=== PATIENT | female | born 1960 | race Caucasian/White ===

== ENCOUNTER 2016-12-29 11:20 | Emergency (ER) | payer BC, OTHER ==
[~2016-12-29] VITALS: Ht 170.2 cm; Wt 134.0 kg
[2016-12-29 11:30] VITALS: Ht 170.2 cm; Wt 134.0 kg
--- NOTE | 2016-12-29 12:58 | ERD ---
ER Documentation Chief Complaint Date/Time DATE: 12/29/16 TIME: 12:54 Chief Complaint right arm pain/injury HPI Patient is a 56-year-old female who presents to the ED with right arm pain after sustaining a fall yesterday. She has chronic right knee pain and uses a cane to walk around. She states that her knee gave out and she fell to the side. She states that she tried to stop falling on her knee and fell on her side. She states that the pain has gotten worse in the last day. She states that the pain is from her shoulder to her mid forearm on the right side. Denies numbness or tingling. States that she limited range of motion. She denies hitting her head, passing out or loss of consciousness. She denies chest pain or cough or shortness of breath. She also complains of left wrist pain. Patient has been taking Tylenol 3 with some relief. She takes that medication for her chronic right knee pain. No other complaints. ROS All systems reviewed and are negative except as per history of present illness. Medications Home Meds No Active Prescriptions or Reported Meds Allergies Allergies: Coded Allergies: acetaminophen (Verified Allergy, Intermediate, rash, 12/29/16) hydrocodone (Verified Allergy, Intermediate, rash, 12/29/16) povidone-iodine (Verified Allergy, Intermediate, rash, 12/29/16) soap (Verified Allergy, Intermediate, rash, 12/29/16) Sulfa (Sulfonamide Antibiotics) (Verified Allergy, Mild, vomit, 12/29/16) diazepam (Verified Allergy, Unknown, 07/11/13) PMhx/Soc History of Surgery: Yes (rtLUMPECTOMY BREAST WITH CYST; TONSILLECTOMY; gastric sleeve) Anesthesia Reaction: No Hx Neurological Disorder: No Hx Respiratory Disorders: No Hx Cardiac Disorders: No Hx Psychiatric Problems: No Hx Miscellaneous Medical Probl: No (knee pain) Hx Alcohol Use: No Hx Substance Use: No Hx Tobacco Use: No Smoking Status: Never smoker FmHx Family History: No coronary disease, No diabetes, No other Physical Exam Vitals Vital Signs Date Time Temp Pulse Resp B/P Pulse Ox O2 Delivery O2 Flow Rate FiO2 12/29/16 11:30 98.7 73 18 136/66 99 Physical Exam GENERAL: Well-developed, well-nourished female. Appears in no acute distress. HEAD: Normocephalic, atraumatic. EYES: Pupils are equally reactive bilaterally. EOMs grossly intact. No conjunctival erythema. ENT: Moist mucous membranes. No uvula deviation. No kissing tonsils. No exudates. NECK: Supple. No lymphadenopathy or thyromegaly. No meningismus. negative kernig. negative brudinski. LUNG: Clear to auscultation bilaterally. No rhonchi, wheezing, rales or coarse breath sounds. HEART: Regular rate and rhythm. No murmurs, rubs or gallops. Extremities: Equal pulses bilaterally. No peripheral clubbing, cyanosis or edema. No unilateral leg swelling. tenderness to humerus, anterior shoulder and mid forearm of right. limited rom in all directions. no snuffbox tenderness. tenderness in left wrist with no snuffboxtenderness. no pain above or below wrist of left. radius, ulnar, median nerve intact. no wrist drop. NEUROLOGIC: Alert and oriented. Normal speech. Steady gait with cane SKIN: Normal color. Warm and dry. No rashes or lesions. Capillary refill < 2 seconds Procedures/MDM ER COURSE: I kept the patient and/or family informed of laboratory and diagnostic imaging results throughout the emergency room course. MEDICAL DECISION MAKING: This is a 56 year old femalewho presents with right arm pain 1 day. Vital signs were reviewed. Patient is afebrile. Patient is not hypoxic. Patient is not toxic or ill-appearing. X-rays as read by radiologist are all unremarkable for fracture dislocation. Patient likely has muscle strain versus sprain however unable to rule out tendon or ligament injury. Patient will be following up with her orthopedic designer, Dr. Anderson. She states that she has been in contact with him regarding the situation and will bring the x- ray report to him. Patient was given a sling and a Velcro wrist splint for her left wrist. Patient is neurovascular intact post placement. Low suspicion for dislocation, fracture, septic joint, compartment syndrome, osteomyelitis, cellulitis, avascular necrosis, neurological injury, vascular injury, tendon laceration. Patient already has tylenol with codeine and is planning on taking that for her pain. DISCHARGE: At this time, patient is stable for discharge and outpatient management with no new complaints during the ER course. Patient will be discharged home with instructions to recheck for new or worsening symptoms such as fever, nausea, weakness, LOC and to follow up with primary care in the next 1-2 days. Patient was advised to return to the ER for any new or worsening symptoms. Plan was discussed and patient and/or family understands and agrees. Home instructions were given. Departure Diagnosis: Primary Impression: Shoulder pain Chronicity: acute Laterality: right Qualified Code: M25.511 - Acute pain of right shoulder Additional Impression: Arm pain, right Condition: Stable DESEAN BUNCH PA-C Dec 29, 2016 12:58
--- NOTE | 2016-12-29 13:36 | RADRPT ---
PROCEDURE: Shoulder x-ray CLINICAL INDICATION: Pain TECHNIQUE: Right shoulder 3 views COMPARISON: None FINDINGS: 3 views of the right shoulder demonstrate no displaced fracture. The humeral head articulates anato mically with the glenoid fossa. The acromioclavicular articulation is within normal limits. Bones are normally mineralized. Soft tissues are unremarkable. IMPRESSION: No acute fracture dislocation No significant degenerate change RPTAT: HH .Hosea Angel MD, Date Time Electronically viewed and signed by .Hosea Angel MD, on 12/29/2016 13:36 .W/
--- NOTE | 2016-12-29 13:38 | RADRPT ---
PROCEDURE: XR Humerus. CLINICAL INDICATION: Pain TECHNIQUE: AP and lateral views of the right humerus were performed. COMPARISON: None. FINDINGS: Two views right humerus demonstrate no displaced fracture. No abnormal periostitis is seen. No stacey tructive bony lesions are noted. The bones normally mineralized. Soft tissues are unremarkable. IMPRESSION: Unremarkable right humerus RPTAT: HH .Hosea Angel MD, Date Time Electronically viewed and signed by .Hosea Angel MD, on 12/29/2016 13:37 .W/
--- NOTE | 2016-12-29 14:31 | RADRPT ---
PROCEDURE: XR RIGHT ELBOW. CLINICAL INDICATION: Pain TECHNIQUE: 3 views of the right elbow performed. COMPARISON: None. FINDINGS: There is no evidence of acute fracture dislocation of the right elbow. There is mild osteoarthritis. Bone mineralization and alignment are unremarkable. No gross abnormal osseous lesion. Joint spaces are preserved. No gross abnormal elevation of the anterior fat pad. No evidence of posterior fat pad . Soft tissues are within limits. IMPRESSION: 1. Mild osteoarthritis . No acute fracture or dislocation of the right elbow. RPTAT: [facility] Physician Tyler Date Time Electronically viewed and signed by Physician Tyler on 12/29/2016 14:31 KATJA/
--- NOTE | 2016-12-29 14:31 | RADRPT ---
PROCEDURE: XR right Forearm. CLINICAL INDICATION: Pain status post fall TECHNIQUE: 3 views of the right forearm were obtained. COMPARISON: No prior studies are available for comparison. FINDINGS: There is no evidence of acute fracture or dislocation of the right forearm. Bone mineralization alig nment are unremarkable. The radius and ulna are intact. No significant soft tissue swelling. IMPRESSION: 1. No evidence of acute fracture or dislocation of the right forearm. RPTAT: [facility] Physician Tyler Date Time Electronically viewed and signed by Physician Tyler on 12/29/2016 14:31 KATJA/
--- NOTE | 2016-12-29 14:33 | RADRPT ---
PROCEDURE: LEFT WRIST X-RAY CLINICAL INDICATION: Pain status post fall TECHNIQUE: 3 views of the left wrist were obtained. COMPARISON: None FINDINGS: There is no evidence of acute fracture or dislocation of the visualized osseous structures of the le ft wrist. Bony mineralization and alignment are unremarkable. Joint spaces are preserved. No signi ficant soft tissue swelling. IMPRESSION: 1. No evidence of acute fracture or dislocation of the left wrist. RPTAT: [facility] Physician Tyler Date Time Electronically viewed and signed by Physician Tyler on 12/29/2016 14:33 JL/
== END 2016-12-29 15:27 | disposition home or self-care (01) ==
LOC: FTE 11:20
DX: M25.511 Pain in right shoulder (principal)

== ENCOUNTER 2017-05-11 11:31 | Day surgery (SDC) | END 2017-05-11 17:25 | disposition home or self-care (01) ==